=== PATIENT | male | born 2000 | race Hispanic/Latino ===

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

== ENCOUNTER 2020-08-12 19:29 | Emergency (ER) | payer SELFPAY | END 2020-08-12 21:00 | disposition home or self-care (01) | LOC: ERS 19:29 | DX: J45.909 Unspecified asthma, uncomplicated (principal) | CPT/HCPCS: J7620 ==

== ENCOUNTER 2021-04-09 13:08 | Emergency (ER) | payer SELFPAY | END 2021-04-09 13:52 | disposition home or self-care (01) | LOC: ERS 13:08 | DX: U07.1 COVID-19 (principal) | CPT/HCPCS: 99282 ==